=== PATIENT | male | born 1955 | race Caucasian/White ===

== ENCOUNTER 2018-06-10 07:03 | Emergency (ER) | payer MEDICAID ==
[~2018-06-10] VITALS: Ht 182.9 cm; Wt 104.3 kg
[2018-06-10] MEDS ORDERED: HYDHCL25 PO (07:44)
== END 2018-06-10 07:52 | disposition home or self-care (01) ==
LOC: ER 07:03
DX: B09 Unspecified viral infection characterized by skin and mucous membrane lesions (principal); R03.0 Elevated blood-pressure reading, without diagnosis of hypertension
CPT/HCPCS: 99282